=== PATIENT | male | born 1965 | race Caucasian/White ===

== ENCOUNTER 2016-05-07 07:15 | Emergency (ER) | payer OTHER ==
[2016-05-07] MEDS ORDERED: ACETAMINOPHEN TAB 325 MG TAB PO STA (07:38)
--- NOTE | 2016-05-07 07:45 | ED ---
Chest Pain HPI - General Chief Complaint: Chest Pain Stated Complaint: chest and neck pain Time Seen by Provider: 05/07/16 07:18 Source: patient Mode of arrival: ambulatory Limitations: no limitations - History of Present Illness Initial Comments: This patient is a 50-year-old man who presents to be evaluated for left chest pain. He indicates the left anterior chest, above the nipple line. The patient indicates that the pain spreads up the chest wall in to the left side of his neck. The patient states that the pain is aching, constant, and it gets worse when he tries to flex or turn his neck, or with movements of his left shoulder. He states that it feels similar to when he had broken clavicle. The patient states that the pain does get a little better if he is lying still. There are no associated anginal symptoms, including no dyspnea, diaphoresis, nausea or vomiting, palpitations, lightheadedness or syncope. He does relate that he had had a fall on the previous day, but believes it was minor, he states that he fell off the side of a [employer], about 3-4 feet landing on his outstretched arms. He did not believe he had an injury at the time. MD Complaint: chest pain -: hour(s) Onset: during rest Pain Location: left chest Pain Radiation: neck Severity: severe Quality: aching Consistency: constant Improves With: nothing Worsens With: movement Treatments Prior to Arrival: none - Related Data Home Medications Medication Instructions Recorded Confirmed Desvenlafaxine [Pristiq ER] 100 mg PO DAILY 05/07/16 05/07/16 Previous Rx's Medication Instructions Recorded Methocarbamol [Robaxin-750] 750 mg PO TID PRN #30 tablet 05/07/16 Allergies Allergy/AdvReac Type Severity Reaction Status Date / Time No Known Allergies Allergy Verified 05/07/16 08:30 Review of Systems ROS Statement: Those systems with pertinent positive or pertinent negative responses have been documented in the HPI. ROS Other: All systems not noted in ROS Statement are negative. Constitutional: Denies: fever, chills Eyes: Denies: vision change Respiratory: Denies: cough, dyspnea, wheezes, hemoptysis Cardiovascular: Reports: as per HPI, chest pain. Denies: palpitations, edema, syncope Gastrointestinal: Denies: abdominal pain, nausea, vomiting, melena, hematochezia Genitourinary: Denies: dysuria, hematuria Skin: Denies: rash Neurological: Denies: headache, weakness, numbness EKG Findings - EKG Results: EKG: interpreted by ASHISH URBAN (Rate approximately 81 bpm), sinus rhythm, normal axis, normal QRS, normal ST/T - [place], Pacemaker, Normal: Normal tracing: normal tracing Past Medical History Past Medical History: No Reported History History of Any Multi-Drug Resistant Organisms: None Reported Past Surgical History: Orthopedic Surgery, Tonsillectomy Past Psychological History: Depression Smoking Status: Current every day smoker Past Alcohol Use History: Occasional Past Drug Use History: Cocaine General Exam Limitations: no limitations General appearance: alert, in no apparent distress Head exam: Present: atraumatic, normocephalic Eye exam: Present: normal appearance. Absent: scleral icterus, conjunctival injection ENT exam: Present: normal oropharynx Neck exam: Present: normal inspection. Absent: tenderness Respiratory exam: Present: normal lung sounds bilaterally. Absent: respiratory distress, wheezes, rales, rhonchi, stridor Cardiovascular Exam: Present: regular rate, normal rhythm, normal heart sounds. Absent: systolic murmur, diastolic murmur, rubs, gallop GI/Abdominal exam: Present: soft. Absent: distended, tenderness, guarding, rebound, rigid, organomegaly, mass, pulsatile mass, hernia Extremities exam: Present: normal inspection, normal capillary refill. Absent: pedal edema, calf tenderness Back exam: Present: normal inspection. Absent: tenderness, CVA tenderness (R), CVA tenderness (L), vertebral tenderness Neurological exam: Present: alert Psychiatric exam: Present: normal affect Skin exam: Present: warm, dry, intact, normal color. Absent: rash Course Vital Signs 05/07/16 05/07/16 05/07/16 07:20 08:01 08:02 Temperature 96.7 F L Pulse Rate 81 Respiratory 20 Rate Blood Pressure 131/86 Blood Pressure 128/81 [Left Arm] Blood Pressure 131/86 [Right Arm] O2 Sat by Pulse 97 Oximetry 05/07/16 05/07/16 08:06 09:50 Temperature Pulse Rate 83 75 Respiratory 16 18 Rate Blood Pressure 118/73 117/69 Blood Pressure [Left Arm] Blood Pressure [Right Arm] O2 Sat by Pulse 96 97 Oximetry Disposition Clinical Impression: Chest pain, Musculoskeletal back pain Disposition: HOME SELF-CARE Condition: Good Instructions: Chest Pain (ED) Additional Instructions: As we discussed, follow-up with your doctor to have a fasting blood sugar checked. Prescriptions: Methocarbamol [Robaxin-750] 750 mg PO TID PRN #30 tablet PRN Reason: pain Referrals: Sara Cantu MD [Primary Care Provider] - 1-2 days
[2016-05-07 07:53] LABS: Basophils # (A) 0.1 k/uL (0-0.2); Basophils % (A) 1 %; CH 30.7; CHCM 33.2; Eosinophils # (A) 0.2 k/uL (0-0.7); Eosinophils % (A) 3 %; HCT 53.8 % (39.0-53.0); HDW 2.46; HGB 17.8 gm/dL (13.0-17.5); Luc # (Auto) 0.13; Luc % (Auto) 3; Lymphocytes # (A) 1.7 k/uL (1.0-4.8); Lymphocytes % (A) 32 %; MCH 30.7 pg (25.0-35.0); MCHC 33.1 g/dL (31.0-37.0); MCV 92.9 fL (80.0-100.0); Mean Platelet Volume 7.3; Monocytes # (A) 0.3 k/uL (0-1.0); Monocytes % (A) 6 %; Neutrophils % (A) 56 %; RBC 5.79 m/uL (4.30-5.90); RDW 13.1 % (11.5-15.5); WBC 5.4 k/uL (3.8-10.6)
--- NOTE | 2016-05-07 08:00 | XR ---
EXAMINATION TYPE: XR chest 1V portable DATE OF EXAM: 05/07/2016 7:57 AM COMPARISON: NONE HISTORY: Chest pain and shortness of breath since last night. TECHNIQUE: Single AP portable frontal upright view of the chest is obtained. FINDINGS: There is no focal air space opacity, pleural effusion, or pneumothorax seen. The cardiac silhouette size is within normal limits. The osseous structures are intact. IMPRESSION: No acute process.
[2016-05-07 08:06] LABS: Partial Thromboplastin Time 25.2 sec (22.0-30.0); Prothrombin Time 10.4 sec (9.0-12.0)
[2016-05-07 08:10] LABS: ALT 25 U/L (21-72); AST 31 U/L (17-59); Alkaline Phosphatase 83 U/L (38-126); Amylase 55 U/L (30-110); Anion Gap 14 mmol/L; Blood Urea Nitrogen 20 mg/dL (9-20); Calcium 9.7 mg/dL (8.4-10.2); Carbon Dioxide 23 mmol/L (22-30); Chloride 106 mmol/L (98-107); Glucose 152 mg/dL (74-99); Magnesium 2.1 mg/dL (1.6-2.3); Non-African American GFR(MDRD) >60 (>60 ml/min/1.73 sqM); Potassium 4.6 mmol/L (3.5-5.1); Sodium 143 mmol/L (137-145); Total Bilirubin 0.4 mg/dL (0.2-1.3); Total Protein 7.3 g/dL (6.3-8.2)
[2016-05-07 08:21] LABS: Creatine Kinase 96 U/L (55-170)
[2016-05-07 08:34] LABS: Troponin I <0.012 ng/mL (0.000-0.034)
[2016-05-07 09:10] LABS: Erythrocyte Sedimentation Rate 1 mm/hr (0-15)
[2016-05-07 09:52] VITALS: RESP 18
--- NOTE | 2016-05-07 09:53 | XR ---
EXAMINATION TYPE: XR scapula LT DATE OF EXAM: 05/07/2016 9:42 AM COMPARISON: Same day chest x-ray. HISTORY: Left scapula and shoulder pain after fall injury 3 days ago. TECHNIQUE: 2 views of the scapular obtained. FINDINGS: No acute displaced left scapular fracture is identified. The visualized ribs are intact. Ov erlying soft tissue is unremarkable. IMPRESSION: No acute displaced scapular fracture seen.
[2016-05-07 10:29] VITALS: BP 111/67; PULSE 77; TEMP 98.1
== END 2016-05-07 10:27 | disposition home or self-care (01) ==
LOC: EC 07:15
DX: R07.9 Chest pain, unspecified (principal); M54.9 Dorsalgia, unspecified; F32.9 Major depressive disorder, single episode, unspecified; F17.200 Nicotine dependence, unspecified, uncomplicated; Z79.899 Other long term (current) drug therapy
CPT/HCPCS: 36415; 71010; 80053; 82150; 82550; 82553; 83690; 83735; 84484; 85025; 85379; 85610; 85652; 85730; 93005; 99285